=== PATIENT | female | born 1955 | race Native Hawaiian/Other Pacific Islander ===

== ENCOUNTER 2017-03-30 10:46 | Observation (INO) | payer BC ==
[~2017-03-30] VITALS: Ht 162.6 cm; Wt 72.2 kg
[2017-03-30 11:35] VITALS: BP 176/73; TEMP 97.9; Ht 162.6 cm; Wt 72.2 kg
[2017-03-30] MEDS ORDERED: LIPITOR10 MG PO (11:49)
[2017-03-30] MEDS ORDERED: CLOPIDOGREL75 MG PO (11:53)
[2017-03-30] MEDS ORDERED: LISI20TA11 PO (11:53)
[2017-03-30 12:00] VITALS: BP 176/73; TEMP 97.9
[2017-03-30 12:05] LABS: PLATELET COUNT 219 K/uL (152-353)
[2017-03-30 12:11] LABS: POTASSIUM 4.1 mmol/L (3.6-5.2)
[2017-03-30 16:00] VITALS: BP 130/63; TEMP 98.7
[2017-03-30 20:00] VITALS: BP 131/63; TEMP 98.5
[2017-03-31] VITALS: BP 118/67; TEMP 98.2
[2017-03-31 04:45] VITALS: BP 110/55; TEMP 98.7
[2017-03-31 08:00] VITALS: BP 142/58; TEMP 98.1
[2017-03-31 08:22] LABS: PLATELET COUNT 187 K/uL (152-353)
== END 2017-03-31 12:18 | disposition home or self-care (01) ==
LOC: MED/SURG 10:46
PROVIDERS: Specialist; ADMIT Family Medicine
DX: J44.1 Chronic obstructive pulmonary disease with (acute) exacerbation (principal); I10 Essential (primary) hypertension; E78.4 Other hyperlipidemia; I73.89 Other specified peripheral vascular diseases
CPT/HCPCS: 36415; 36600; 80053; 82805; 85027; 90658; 90732; 93005; 94640; 94664; 94760; 96372; 99220; G0378; G0379; J1650; J3490

== ENCOUNTER 2017-04-01 03:07 | Outpatient (CLI) | payer BC ==
[~2017-04-01 03:07] MED LIST: CLOPIDOGREL75 MG PO; LIPITOR10 MG PO; LISI20TA11 PO
== END 2017-04-01 03:14 | disposition short-term general hospital (02) ==
LOC: AMB 03:07
DX: R06.02 Shortness of breath (principal)
CPT/HCPCS: A0425; A0427

== ENCOUNTER 2017-04-01 03:18 | Inpatient (IN) | payer BC ==
[2017-04-01] VITALS (23 sets, daily range): BP systolic 04–119; BP diastolic 52–80; TEMP 98.5–98.9; Ht 162.6 cm; Wt 74.8 kg
[~2017-04-01] VITALS: Ht 162.6 cm; Wt 74.8 kg
[2017-04-01 03:55] LABS: PLATELET COUNT 299 K/uL (152-353)
[2017-04-01 04:01] LABS: POTASSIUM 4.7 mmol/L (3.6-5.2)
[2017-04-01 04:06] LABS: PARTIAL THROMBOPLASTIN TIME 29.7 SECONDS (24.5-33.6)
[2017-04-01 13:08] LABS: PLATELET COUNT 208 K/uL (152-353)
[2017-04-01 13:40] LABS: PARTIAL THROMBOPLASTIN TIME 71.5 SECONDS (24.5-33.6)
== END 2017-04-01 15:15 | disposition short-term general hospital (02) | DRG 208 ==
LOC: ED 03:18 → ICU 05:10
PROVIDERS: Specialist
PROC: 05HM33Z Insertion of Infusion Device into Right Internal Jugular Vein, Percutaneous Approach (ICD-10-PCS; principal; 2017-04-01)
PROC: 5A1935Z Respiratory Ventilation, Less than 24 Consecutive Hours (ICD-10-PCS; 2017-04-01)
PROC: B543ZZA Ultrasonography of Right Jugular Veins, Guidance (ICD-10-PCS; 2017-04-01)
PROC: 0BH17EZ Insertion of Endotracheal Airway into Trachea, Via Natural or Artificial Opening (ICD-10-PCS; 2017-04-01)
DX: J96.00 Acute respiratory failure, unspecified whether with hypoxia or hypercapnia (principal); I21.4 Non-ST elevation (NSTEMI) myocardial infarction; J69.0 Pneumonitis due to inhalation of food and vomit; J44.1 Chronic obstructive pulmonary disease with (acute) exacerbation; I87.8 Other specified disorders of veins
CPT/HCPCS: 31500; 36415; 36600; 51702; 80053; 80307; 81000; 82550; 82553; 82805; 83605; 83880; 84484; 85027; 85379; 85610; 85730; 90658; 90732; 93005; 94002; 94003; 94640; 94664; 94760; 96361; 96365; 96372; 96375; 96376; 99220; 99285; C1768; G0378; G0379; J1100; J1200; J1265; J1644; J1650; J2060; J2250; J2270; J2405; J2930; J3370; J3490; Q9963

== ENCOUNTER 2017-04-01 15:28 | Outpatient (CLI) | payer BC | END 2017-04-01 16:52 | disposition short-term general hospital (02) | LOC: AMB 15:28 | DX: J96.00 Acute respiratory failure, unspecified whether with hypoxia or hypercapnia (principal); I21.4 Non-ST elevation (NSTEMI) myocardial infarction; J69.0 Pneumonitis due to inhalation of food and vomit; J44.1 Chronic obstructive pulmonary disease with (acute) exacerbation; I87.8 Other specified disorders of veins | CPT/HCPCS: A0425; A0427 ==

== ENCOUNTER 2018-09-20 09:33 | Outpatient (CLI) | payer BC | END 2018-09-20 21:41 | disposition home or self-care (01) | LOC: MAMMO 09:33 | DX: Z12.31 Encounter for screening mammogram for malignant neoplasm of breast (principal) ==

== ENCOUNTER 2018-11-19 09:57 | Outpatient (CLI) | payer BC ==
[2018-11-19 10:30] LABS: PLATELET COUNT 239 K/uL (152-353)
[2018-11-19 10:47] LABS: POTASSIUM 4.1 mmol/L (3.6-5.2); SODIUM 140 mmol/L (136-145)
== END 2018-11-19 23:43 | disposition home or self-care (01) ==
LOC: LABW 09:57
PROVIDERS: Internal Medicine Cardiovascular Disease
DX: Z79.899 Other long term (current) drug therapy (principal)
CPT/HCPCS: 36415; 80053; 80061; 82043; 82570; 85027

== ENCOUNTER 2020-01-14 09:45 | Outpatient (CLI) | payer BC | END 2020-01-14 23:58 | disposition home or self-care (01) | LOC: US 09:45 | PROVIDERS: ATTEND Internal Medicine Cardiovascular Disease | DX: I65.29 Occlusion and stenosis of unspecified carotid artery (principal) ==

== ENCOUNTER 2020-02-26 10:30 | Outpatient (CLI) | payer BC ==
[2020-02-26 10:55] LABS: POTASSIUM 4.1 mmol/L (3.6-5.2)
== END 2020-02-26 21:12 | disposition home or self-care (01) ==
LOC: LABW 10:30
PROVIDERS: ATTEND Internal Medicine Cardiovascular Disease
DX: Z79.899 Other long term (current) drug therapy (principal)
CPT/HCPCS: 36415; 80048; 80061

== ENCOUNTER 2020-07-06 10:59 | Outpatient (CLI) | payer BC | END 2020-07-06 19:35 | disposition home or self-care (01) | LOC: US 10:59 | PROVIDERS: ATTEND Internal Medicine Cardiovascular Disease | DX: I65.29 Occlusion and stenosis of unspecified carotid artery (principal) ==

== ENCOUNTER 2022-01-31 09:40 | Outpatient (CLI) | payer BC | END 2022-01-31 19:19 | disposition home or self-care (01) | LOC: RESP 09:40 | PROVIDERS: ATTEND Internal Medicine Cardiovascular Disease | DX: I65.29 Occlusion and stenosis of unspecified carotid artery (principal); I10 Essential (primary) hypertension ==

== ENCOUNTER 2022-08-02 13:07 | Outpatient (CLI) | payer BC, OTHER | END 2022-08-02 22:13 | disposition home or self-care (01) | LOC: RAD 13:07 | PROVIDERS: ATTEND Nurse Practitioner Family | DX: S89.81XA Other specified injuries of right lower leg, initial encounter (principal); Y92.89 Other specified places as the place of occurrence of the external cause ==